=== PATIENT | female | born 1955 | race American Indian/Alaskan Native ===

== ENCOUNTER 2019-07-17 15:51 | Emergency (ER) | payer MEDICAID ==
[2019-07-17] MEDS ORDERED: NACL 0.9% 500 ML 500 ML IV ONE (16:20)
--- NOTE | 2019-07-17 16:23 | Emergency Department Report ---
- General Chief complaint: Weakness Stated complaint: WEAKNESS Time Seen by Provider: 07/17/19 16:18 Source: EMS Mode of arrival: Stretcher Limitations: Physical Limitation - History of Present Illness Initial comments: Patient is a 63-year-old female that presents emergency room with complaints of generalized weakness. Patient states she had dialysis today and became weak shortly after having her dialysis. Patient states she believes dialysis was the same. Patient is not sure if they pulled off more fluid or changed the settings of her dialysis. Patient denies pain. Patient denies chest pain. Patient denies shortness of breath. Patient denies dizziness. Patient denies loss of conscious. Patient denies syncope. Patient denies seizure. MD Complaint: generalized weakness -: Sudden Location: generalized Consistency: constant Improves with: rest Worsens with: movement, exertion Associated Symptoms: denies: chest pain, confusion, dark stools, diaphoresis, dysuria, easy bruising, fever/chills, headaches, loss of appetite, nausea/vomiting, myalgias, rash, shortness of breath, syncope - Related Data Home Medications Medication Instructions Recorded Confirmed Last Taken B Complex 11/Folic/C/Biot/Zinc 1 tab PO DAILY 09/07/16 09/07/16 09/06/16 [Dialyvite with Zinc Tablet] Carvedilol 1 tab PO BID 09/07/16 09/07/16 09/06/16 Ergocalciferol (Vitamin D2) 1 tab PO 1XW 09/07/16 09/07/16 09/02/16 [Vitamin D2] Gabapentin 300 mg PO BID 09/07/16 09/07/16 09/06/16 Insulin Detemir [Levemir VIAL] 12 units SQ DAILY 09/07/16 09/07/16 09/05/16 Insulin Lispro [HumaLOG VIAL] 10 units SQ TID 09/07/16 09/07/16 09/06/16 Ranitidine HCl [Acid Control] 150 mg PO BID 09/07/16 09/07/16 09/05/16 traMADol [Ultram] 50 mg PO Q8HR PRN 09/07/16 09/07/16 09/06/16 Previous Rx's Medication Instructions Recorded Last Taken Type oxyCODONE /ACETAMINOPHEN [Percocet 1 - 2 tab PO Q4HR #40 tab 09/07/16 Unknown Rx 5/325] Allergies Allergy/AdvReac Type Severity Reaction Status Date / Time No Known Allergies Allergy Verified 09/07/16 07:52 ED Review of Systems ROS: Stated complaint: WEAKNESS Other details as noted in HPI Constitutional: weakness. denies: chills, fever Eyes: denies: eye pain, eye discharge, vision change ENT: denies: ear pain, throat pain Respiratory: denies: cough, shortness of breath, wheezing Cardiovascular: denies: chest pain, palpitations Endocrine: no symptoms reported Gastrointestinal: denies: abdominal pain, nausea, diarrhea Genitourinary: denies: urgency, dysuria, discharge Musculoskeletal: denies: back pain, joint swelling, arthralgia Skin: denies: rash, lesions Neurological: weakness. denies: headache, paresthesias Psychiatric: denies: anxiety, depression Hematological/Lymphatic: denies: easy bleeding, easy bruising ED Past Medical Hx - Past Medical History Previous Medical History?: Yes Hx Hypertension: Yes Hx Congestive Heart Failure: Yes Hx Diabetes: Yes (TYPE 2) Hx Liver Disease: Yes (HEP C) Hx Renal Disease: Yes (HD [facility]) Hx Seizures: No Hx Asthma: No Hx COPD: No Additional medical history: Anemia - Surgical History Past Surgical History?: Yes Additional Surgical History: AV fistula to L arm. Hysterectomy. tubal ligation - Family History Family history: no significant - Social History Smoking Status: Never Smoker Substance Use Type: None - Medications Home Medications: Home Medications Medication Instructions Recorded Confirmed Last Taken Type B Complex 11/Folic/C/Biot/Zinc 1 tab PO DAILY 09/07/16 09/07/16 09/06/16 History [Dialyvite with Zinc Tablet] Carvedilol 1 tab PO BID 09/07/16 09/07/16 09/06/16 History Ergocalciferol (Vitamin D2) 1 tab PO 1XW 09/07/16 09/07/16 09/02/16 History [Vitamin D2] Gabapentin 300 mg PO BID 09/07/16 09/07/16 09/06/16 History Insulin Detemir [Levemir VIAL] 12 units SQ DAILY 09/07/16 09/07/16 09/05/16 History Insulin Lispro [HumaLOG VIAL] 10 units SQ TID 09/07/16 09/07/16 09/06/16 History Ranitidine HCl [Acid Control] 150 mg PO BID 09/07/16 09/07/16 09/05/16 History oxyCODONE /ACETAMINOPHEN [Percocet 1 - 2 tab PO Q4HR #40 tab 09/07/16 Unknown Rx 5/325] traMADol [Ultram] 50 mg PO Q8HR PRN 09/07/16 09/07/16 09/06/16 History ED Physical Exam - General Limitations: Physical Limitation General appearance: alert, in no apparent distress - Head Head exam: Present: atraumatic, normocephalic - Eye Eye exam: Present: normal appearance, PERRL Pupils: Present: normal accommodation - ENT ENT exam: Present: mucous membranes moist - Neck Neck exam: Present: normal inspection - Respiratory Respiratory exam: Present: normal lung sounds bilaterally. Absent: respiratory distress, wheezes, rales - Cardiovascular Cardiovascular Exam: Present: regular rate, normal rhythm. Absent: systolic murmur, diastolic murmur, rubs, gallop - GI/Abdominal GI/Abdominal exam: Present: soft, normal bowel sounds. Absent: distended, tenderness, guarding - Rectal Rectal exam: Present: deferred - Extremities Exam Extremities exam: Present: normal inspection - Back Exam Back exam: Present: normal inspection - Neurological Exam Neurological exam: Present: alert, oriented X3 - Psychiatric Psychiatric exam: Present: normal affect, normal mood - Skin Skin exam: Present: warm, dry, intact, normal color. Absent: rash - Assessment Assessment Interval: Baseline - Level of Consciousness 1a. Level of Consciousness: alert/keenly responsive - LOC Questions 1b. LOC Questions: answers both correctly - LOC Command 1c. LOC Commands: performs tasks correctly - Best Gaze 2. Best Gaze: normal - Visual 3. Visual: no visual loss - Facial Palsy 4. Facial Palsy: normal symmetrical movement - Motor Arm 5a. Motor Arm Left: no drift 5b. Motor Arm Right: no drift - Motor Leg 6a. Motor Leg Left: no drift 6b. Motor Leg Right: no drift - Limb Ataxia 7. Limb Ataxia: absent - Sensory 8. Sensory: normal - Best Language 9. Best Language: no aphasia - Dysarthria 10. Dysarthria: normal - Extinction and Inattention 11. Extinction/Inattention: no abnormality - Scoring Total Score: 0 Stroke Severity: No Stroke Symptoms ED Course Vital Signs 07/17/19 07/17/19 16:07 18:50 Temperature 98.8 F Pulse Rate 68 62 Respiratory 16 18 Rate Blood Pressure 150/77 Blood Pressure 142/72 [Right] O2 Sat by Pulse 97 96 Oximetry - Reevaluation(s) Reevaluation #1: Patient has received normal saline. Patient states she is feeling better. I discussed all results with patient. Patient is stable for discharge. Patient will be discharged home. Patient agrees with plan of care. Patient given disch arge instructions. Patient voiced understanding discharge instructions 07/17/19 17:29 ED Medical Decision Making - Lab Data Result diagrams: 07/17/19 16:37 07/17/19 16:37 - EKG Data -: EKG Interpreted by Me EKG shows normal: sinus rhythm, axis, intervals, QRS complexes, ST-T waves Rate: normal - Medical Decision Making Patient is a 63-year-old female that presents emergency room with weakness after dialysis. Patient states that she had a different tech and believes that the dialysis is little bit longer or different than before. Patient given fluids and responded well to therapy. Patient states she felt better after receiving normal saline bolus. Patient discharged home. Patient stable for discharge. Patient's labs unremarkable and consistent with end-stage renal disease. - Differential Diagnosis weakness after dialysis. Dehydration. Critical care attestation.: If time is entered above; I have spent that time in minutes in the direct care of this critically ill patient, excluding procedure time. ED Disposition Clinical Impression: Weakness, Dehydration, ESRD (end stage renal disease) on dialysis Disposition: DC-01 TO HOME OR SELFCARE Is pt being admited?: No Does the pt Need Aspirin: No Condition: Stable Instructions: Dehydration (ED) Additional Instructions: Patient to follow up with primary care in 2-3 days. Patient to return to ER if condition worsens. Patient to take meds as directed. Patient increase water. Patient to take Tylenol when necessary for pain. Patient to follow up with recreational assistant in 2 days. Patient to continue dialysis schedule. Referrals: MACARIO PHILLIPS MD [Primary Care Provider] - 2-3 Days Time of Disposition: 17:35
[2019-07-17 17:06] LABS: Basophils % (Auto) 0.6 % (0.0-1.8); Eosinophils # (Auto) 0.1 K/mm3 (0.0-0.4); Eosinophils % (Auto) 1.7 % (0.0-4.3); Hematocrit 36.3 % (30.3-42.9); Hemoglobin 11.9 gm/dl (10.1-14.3); Lymphocytes # (Auto) 1.9 K/mm3 (1.2-5.4); Lymphocytes % (Auto) 38.1 % (13.4-35.0); Mean Corpuscular HGB Conc 33 % (30-34); Mean Corpuscular Volume 96 fl (79-97); Monocytes # (Auto) 0.6 K/mm3 (0.0-0.8); Monocytes % (Auto) 11.2 % (0.0-7.3); Platelet Count 179 K/mm3 (140-440); Red Blood Count 3.79 M/mm3 (3.65-5.03); Red Cell Distribution Width 14.1 % (13.2-15.2)
[2019-07-17 17:10] LABS: Albumin 4.3 g/dL (3.9-5); Calcium 8.9 mg/dL (8.4-10.2)
[2019-07-17] MEDS ORDERED: TYLENOL PO ONE (18:40)
[2019-07-17 18:51] VITALS: BP 142/72
== END 2019-07-17 20:40 | disposition home or self-care (01) ==
LOC: ED 15:51
DX: E86.0 Dehydration (principal); R53.1 Weakness; E11.22 Type 2 diabetes mellitus with diabetic chronic kidney disease; I13.2 Hypertensive heart and chronic kidney disease with heart failure and with stage 5 chronic kidney disease, or end stage renal disease; I50.9 Heart failure, unspecified; N18.6 End stage renal disease; Z99.2 Dependence on renal dialysis; Z86.19 Personal history of other infectious and parasitic diseases; Z86.2 Personal history of diseases of the blood and blood-forming organs and certain disorders involving the immune mechanism; Z79.899 Other long term (current) drug therapy
CPT/HCPCS: 36415; 80053; 85025; 93005; 93010; 96360; 99284; J7040

== ENCOUNTER 2021-11-02 11:35 | Emergency (ER) | payer MEDICARE ==
[2021-11-02] MEDS ORDERED: SODIUM CHLORIDE 0.9% 500 ML 500 ML IV ONE (11:39)
--- NOTE | 2021-11-02 11:42 | Emergency Department Report ---
- General Chief complaint: Weakness Stated complaint: WEAKNESS Time Seen by Provider: 11/02/21 11:38 - History of Present Illness Initial comments: Patient presents with generalized weakness. She was brought in by ambulance from dialysis. Patient had been connected to the dialysis machine for about 10 minutes when she had abrupt onset of generalized weakness. She states that she just felt weak all over. She was shaky and tremulous. She is having hot and cold flashes. She made the renal unit stop dialysis. EMS was called and the patient was transported here. Patient states she is not having any pain. She has no nausea or vomiting. She has had no cough or congestion. She states that she just feels weak all over and feels like she is going to . Patient has never had symptoms like this before. As far she was aware, there were no problems working her up to dialysis. She had asked for Benadryl like she normally does. Benadryl reportedly had been administered and patient started having the symptoms. - Related Data Home Medications Medication Instructions Recorded Confirmed Last Taken B Complex 11/Folic/C/Biot/Zinc 1 tab PO DAILY 09/07/16 09/07/16 09/06/16 [Dialyvite with Zinc Tablet] Ergocalciferol (Vitamin D2) 1 tab PO 1XW 09/07/16 09/07/16 09/02/16 [Vitamin D2] Gabapentin 300 mg PO BID 09/07/16 09/07/16 09/06/16 Insulin Detemir [Levemir VIAL] 12 units SQ DAILY 09/07/16 09/07/16 09/05/16 Insulin Lispro [HumaLOG VIAL] 10 units SQ TID 09/07/16 09/07/16 09/06/16 carvediloL [Carvedilol] 1 tab PO BID 09/07/16 09/07/16 09/06/16 raNITIdine HCl [Acid Control] 150 mg PO BID 09/07/16 09/07/16 09/05/16 traMADoL [Ultram] 50 mg PO Q8HR PRN 09/07/16 09/07/16 09/06/16 Previous Rx's Medication Instructions Recorded Last Taken Type oxyCODONE /ACETAMINOPHEN [Percocet 1 - 2 tab PO Q4HR #40 tab 09/07/16 Unknown Rx 5/325] Allergies Allergy/AdvReac Type Severity Reaction Status Date / Time No Known Allergies Allergy Verified 09/07/16 07:52 ED Review of Systems ROS: Stated complaint: WEAKNESS Other details as noted in HPI Comment: All other systems reviewed and negative Constitutional: denies: fever Eyes: denies: vision change ENT: denies: throat pain Respiratory: denies: cough Cardiovascular: denies: chest pain Endocrine: denies: unexplained weight loss Gastrointestinal: denies: abdominal pain Genitourinary: denies: dysuria Musculoskeletal: denies: back pain Skin: denies: rash Neurological: denies: headache Hematological/Lymphatic: denies: easy bruising ED Past Medical Hx - Past Medical History Hx Hypertension: Yes Hx Congestive Heart Failure: Yes Hx Diabetes: Yes (TYPE 2) Hx Liver Disease: Yes (HEP C) Hx Renal Disease: Yes (HD MWF THROUGH [facility]) Hx Seizures: No Hx Asthma: No Hx COPD: No Additional medical history: Anemia - Surgical History Additional Surgical History: AV fistula to L arm. Hysterectomy. tubal ligation - Family History Family history: hypertension - Social History Smoking Status: Never Smoker Substance Use Type: None - Medications Home Medications: Home Medications Medication Instructions Recorded Confirmed Last Taken Type B Complex 11/Folic/C/Biot/Zinc 1 tab PO DAILY 09/07/16 09/07/16 09/06/16 History [Dialyvite with Zinc Tablet] Ergocalciferol (Vitamin D2) 1 tab PO 1XW 09/07/16 09/07/16 09/02/16 History [Vitamin D2] Gabapentin 300 mg PO BID 09/07/16 09/07/16 09/06/16 History Insulin Detemir [Levemir VIAL] 12 units SQ DAILY 09/07/16 09/07/16 09/05/16 History Insulin Lispro [HumaLOG VIAL] 10 units SQ TID 09/07/16 09/07/16 09/06/16 History carvediloL [Carvedilol] 1 tab PO BID 09/07/16 09/07/16 09/06/16 History oxyCODONE /ACETAMINOPHEN [Percocet 1 - 2 tab PO Q4HR #40 tab 09/07/16 Unknown Rx 5/325] raNITIdine HCl [Acid Control] 150 mg PO BID 09/07/16 09/07/16 09/05/16 History traMADoL [Ultram] 50 mg PO Q8HR PRN 09/07/16 09/07/16 09/06/16 History ED Physical Exam - General Limitations: No Limitations, Other (Pulse ox noted and normal by EMS) General appearance: alert, in no apparent distress, other (Frail) - Head Head exam: Present: atraumatic, normocephalic - Eye Eye exam: Present: normal appearance, EOMI. Absent: scleral icterus - ENT ENT exam: Present: mucous membranes dry, normal external ear exam - Neck Neck exam: Present: normal inspection. Absent: meningismus - Respiratory Respiratory exam: Present: normal lung sounds bilaterally, respiratory distress - Cardiovascular Cardiovascular Exam: Present: regular rate, normal rhythm - GI/Abdominal GI/Abdominal exam: Present: soft. Absent: tenderness - Extremities Exam Extremities exam: Present: normal capillary refill. Absent: calf tenderness - Back Exam Back exam: Absent: CVA tenderness (R), CVA tenderness (L) - Neurological Exam Neurological exam: Present: alert, oriented X3, CN II-XII intact, reflexes normal - Psychiatric Psychiatric exam: Present: normal affect, normal mood, anxious, other (Tearful) - Skin Skin exam: Present: warm, dry ED Course Vital Signs 11/02/21 11/02/21 11:36 13:52 Temperature 97.9 F Pulse Rate 71 70 Respiratory 16 18 Rate Blood Pressure 184/84 148/69 [Left] O2 Sat by Pulse 99 93 Oximetry - Reevaluation(s) Reevaluation #1: 11/02/21 11:42 EMS was met upon arrival. IVF, labs, and EKG were ordered. Old records reviewed. Reevaluation #2: 11/02/21 15:30 Labs are noted. Old troponin was reviewed. Patient is resting and feeling better. She wants to go home and was discharged ED Medical Decision Making - Lab Data Result diagrams: 11/02/21 13:02 11/02/21 13:02 Rhythm strip: Normal sinus rhythm without ectopy per monitor observe 10 seconds. - EKG Data -: EKG Interpreted by Me - EKG Data 11/02/21 14:06 EKG shows a normal sinus rhythm at 72. Intervals are normal including a QRS of 88 and a QT corrected of 494. Patient does have some artifact noted. There are PACs noted. There is generalized T wave flattening with poor R wave progression. There does not appear to be old EKG change. - Medical Decision Making Patient presents with generalized weakness. Etiology for this is not known. She states that she feels better now. She had just generalized weakness. There was no other associated symptom to suggest ACS. She had no chest pain or shortness of breath. The troponin is elevated, but she does seem to run elevated based on labs from 2016. Given her renal disease, I suspect that she likely does have a baseline elevation in troponin. She did not have chest pain and has no EKG change suggestive of STEMI. Patient has no shortness of breath or palpitations. She does not have angina equivalent. Patient did not have a syncopal event. This was not exertional. She has no electrolyte derangements. There is no hypoglycemia. Etiology for this was not known, but the patient would like to go home. She does have the capacity to make this decision. We discussed admission which she declined. Critical Care Time: No Critical care attestation.: If time is entered above; I have spent that time in minutes in the direct care of this critically ill patient, excluding procedure time. ED Disposition Clinical Impression: Generalized weakness, ESRD (end stage renal disease) on dialysis Disposition: HOME / SELF CARE / HOMELESS Is pt being admited?: No Condition: Stable Additional Instructions: Continue home medication. Drink any water. Return for problems. Follow-up with your regular doctor for recheck. Referrals: PRIMARY MD JOSEPH [Primary Care Provider] - 3-5 Days
[2021-11-02 13:24] LABS: Hematocrit 36.9 % (30.3-42.9); Hemoglobin 11.5 gm/dl (10.1-14.3); Mean Corpuscular HGB Conc 31 % (30-34); Mean Corpuscular Volume 96 fl (79-97); Platelet Count 236 K/mm3 (140-440); Red Blood Count 3.84 M/mm3 (3.65-5.03); Red Cell Distribution Width 13.6 % (13.2-15.2)
[2021-11-02 14:58] LABS: Calcium 9.3 mg/dL (8.4-10.2)
[2021-11-02 15:23] LABS: Chol/HDL Ratio 3.02 %
[2021-11-02 15:53] VITALS: BP 159/73
--- NOTE | 2021-11-02 18:01 | Electrocardiograph Report ---
[facility] Test Date: 2021-11-02 Test Time: 13:17:23 Pat Name: SOLA MERCADO Department: Room: Gender: F Frame Hand: RYAN : 1955 Requested By: SHARITA TOWNSEND Order Number: [id number] Reading MD: Paige Quintanilla Measurements Intervals [place] Rate: 72 P: -20 VA: 159 QRS: -17 QRSD: 88 T: 30 QT: 456 QTc: 494 Interpretive Statements Sinus rhythm Inferior infarct, old Anterior infarct, old Abnormal ECG No previous ECG available for comparison Electronically Signed On 11-02-2021 18:01:31 EST by Paige Quintanilla
== END 2021-11-02 16:03 | disposition home or self-care (01) ==
LOC: ED 11:35
DX: R53.1 Weakness (principal); E11.22 Type 2 diabetes mellitus with diabetic chronic kidney disease; I12.0 Hypertensive chronic kidney disease with stage 5 chronic kidney disease or end stage renal disease; N18.6 End stage renal disease
CPT/HCPCS: 36415; 80048; 80061; 84484; 85027; 93005; 99283

== ENCOUNTER 2022-06-09 09:44 | Emergency (ER) | payer MEDICARE ==
[2022-06-09 09:55] VITALS: BP 195/105
== END 2022-06-11 13:27 | disposition left against medical advice (07) ==
LOC: ED 09:44
DX: M54.50 Low back pain, unspecified (principal); Z53.21 Procedure and treatment not carried out due to patient leaving prior to being seen by health care provider